=== PATIENT | female | born 1940 | race Caucasian/White ===

== ENCOUNTER 2019-01-01 15:04 | Emergency (ER) | payer MEDICARE, BC ==
[~2019-01-01] VITALS: Wt 57.0 kg
[~2019-01-01 15:04] MED LIST: ATRO2DRO3 LEFT EYE; CELE200C PO; ESOM40CA PO; LEVO88TA3 PO; POLY15DR42 BOTH EYES; PRED12OP5 BOTH EYES; SIMV20TA2 PO; VIGA LEFT EYE
[2019-01-01 15:08] VITALS: BP 160/75; PULSE 60; RESP 18
[2019-01-01] MEDS ORDERED: morphine 4 MG/ML VIAL IV STA (16:47)
[2019-01-01] MEDS ORDERED: SOD CHLORIDE 0.9% 500 ML IV STA (16:47)
[2019-01-01] MEDS ORDERED: ONDANSETRON 4 MG INJ IV STA (16:47)
--- NOTE | 2019-01-01 17:28 | ERD ---
ER Documentation Chief Complaint Chief Complaint HEADACHE WITH NO NEURO DEFICIT. NO N/V. NON TRAUMA BRUISE TO LOWER LEG HPI This is a 78-year-old female who presents to the emergency room complaining of a headache for approximately 2 to 3 days. The patient describes nontraumatic headache that was gradual in onset is bandlike across the entirety of her scalp. Patient does have a history of glaucoma but denies any vision changes or ocular pain that would be consistent with her glaucoma. She has been taking her glaucoma medication. She also denies any jaw claudication or vision blurriness or loss of vision. No fevers or chills or trauma. The patient has noted some nontraumatic bruising to her right weiner overlying a varicosity. Patient otherwise has no complaints. She describes her headache at this time as 6-7 out of 10. She tried some Tylenol for the first time just prior to arrival. ROS All systems reviewed and are negative except as per history of present illness. Medications Home Meds Reported Medications Artificial Tears* (Artificial Tears* Ophth) 15 ml Opht, 2 DROP BOTH EYES QID, EA 10/29/14 Moxifloxacin Hcl* (Vigamox*) 0.5% - 3 Ml Opht, 1 DROP LEFT EYE QID, EA 10/29/14 Esomeprazole Mag Trihydrate (Nexium) 40 Mg Capsule.dr, 40 MG PO DAILY, CAP 10/29/14 Simvastatin (Simvastatin) 20 Mg Tablet, 20 MG PO HS, TAB 10/29/14 Celecoxib* (Celebrex*) 200 Mg Capsule, 200 MG PO DAILY PRN for PAIN AND/OR INFLAMMATION, CAP 10/29/14 Levothyroxine Sodium* (Levothyroxine Sodium*) 88 Mcg Tablet, 88 MCG PO AC BREAKFAST, TAB 10/29/14 Atropine Sulfate* (Atropine Sulfate*) 1%-5 Ml Opht Drops, 1 DROP LEFT EYE BID, EA 10/29/14 Prednisolone Acetate* (Pred Mild*) 5 Ml Drops.susp, 1 DROP BOTH EYES QID, EA 10/29/14 Allergies Allergies: Coded Allergies: iodine (Verified Allergy, Mild, 10/29/14) PMhx/Soc History of Surgery: Yes (cataract,glaucoma,right knee ,left shoulder surgery, BILATERAL HIP) Anesthesia Reaction: No Hx Neurological Disorder: No Hx Respiratory Disorders: No Hx Cardiac Disorders: Yes (HTN, HDL) Hx Psychiatric Problems: No Hx Miscellaneous Medical Probl: Yes (HYPOTHYROIDISM, GLAUCOMA) Hx Alcohol Use: Yes (occassional) Hx Substance Use: No Hx Tobacco Use: No Smoking Status: Never smoker FmHx Family History: No diabetes Physical Exam Vitals Vital Signs Date Temp Pulse Resp B/P (MAP) Pulse Ox O2 O2 Flow FiO2 Time Delivery Rate 01/01/19 97.5 60 18 160/75 99 15:08 (103) Physical Exam General: Well developed, well nourished, no acute distress Head: Normocephalic, atraumatic., No tenderness to percussion of the temporal arteries bilaterally Eyes: Pupils equally reactive, EOM intact ENT: Moist mucous membranes Neck: Supple, no lymphadenopathy Respiratory: Lungs clear bilaterally, no distress Cardiovascular: RRR, no murmurs, rubs, or gallops Abdominal: Soft, non-tender, non-distended, no peritoneal signs : Deferred MSK: No edema, no unilateral swelling, 5/5 strength Neurologic: Alert and oriented, moving all extremities, normal speech, no focal weakness, no cerebellar signs, no meningismus Skin: Small bruising to the right weiner overlying a varicose vein, no petechia or purpura Psych: Normal mood Result Diagram: 01/01/19 1720 Results 24 hrs Laboratory Tests Test 01/01/19 17:20 White Blood Count 8.8 10^3/ul Red Blood Count 4.47 10^6/ul Hemoglobin 13.6 g/dl Hematocrit 40.8 % Mean Corpuscular Volume 91.3 fl Mean Corpuscular Hemoglobin 30.4 pg Mean Corpuscular Hemoglobin Concent 33.3 g/dl Red Cell Distribution Width 15.0 % Platelet Count 217 10^3/UL Mean Platelet Volume 11.0 fl Immature Granulocytes % 0.600 % Neutrophils % 66.2 % Lymphocytes % 23.8 % Monocytes % 8.0 % Eosinophils % 0.9 % Basophils % 0.5 % Nucleated Red Blood Cells % 0.0 /100WBC Immature Granulocytes # 0.050 10^3/ul Neutrophils # 5.8 10^3/ul Lymphocytes # 2.1 10^3/ul Monocytes # 0.7 10^3/ul Eosinophils # 0.1 10^3/ul Basophils # 0.0 10^3/ul Nucleated Red Blood Cells # 0.0 10^3/ul Prothrombin Time 12.0 Sec Prothrombin Time Ratio 0.9 INR International Normalized Ratio 0.88 Activated Partial Thromboplast Time 24.5 Sec Current Medications Medications Dose Sig/Kristin Start Time Status Last (Trade) Ordered Route PRN Stop Time Admin Dose Reason Admin Sodium 500 ml @ Q1H STAT 01/01/19 DC 01/01/19 Chloride 500 mls/hr IV 16:47 17:32 01/01/19 17:46 Ondansetron 4 mg ONCE STAT 01/01/19 DC 01/01/19 HCl (Zofran IV 16:47 17:32 Inj) 01/01/19 16:49 Morphine 2 mg ONCE STAT 01/01/19 DC 01/01/19 Sulfate IV 16:47 17:31 (morphine) 01/01/19 16:49 Ketorolac 15 mg ONCE STAT 01/01/19 DC 01/01/19 Tromethamine IV 17:46 18:20 (Toradol) 01/01/19 17:48 Procedures/MDM EKG, MONITORS, & DIAGNOSTIC IMAGING: CT brain: IMPRESSION: Atrophy. Mild white matter disease compatible with chronic small vessel ischemia. No intracranial hemorrhage, mass or evidence of acute transcortical infarct. LAB INTERPRETATION: I reviewed the laboratory testing and it shows no evidence of acute process MEDICAL DECISION MAKING: The patient's headache is unlikely related to serious etiology. The patient does not exhibit any clinical signs or symptoms, and has no risk factors to suggest headache etiology such as subarachnoid hemorrhage, acute vertebral or carotid dissection, intracranial mass, epidural, subdural hematoma, dural venous sinus thrombosis, giant cell arteritis, or pseudotumor cerebri. The patient is describing a very classic tension type headache. However given her age I do believe CT of the brain would be appropriate to rule out bleed or mass. The patient does have some bruising noted to her right weiner that is consistent with likely ruptured varicosity. No evidence of significant trauma or other coagulopathy. ER COURSE: * Patient given IV fluids and pain control medication * Patient much improved and asymptomatic currently. The patient is safe for discharge. No evidence of coagulopathy and negative CT brain. CONSULTATION: None DISPOSITION PLAN: The patient does not have an identifiable emergent medical condition that warrants inpatient hospitalization at this time. The patient is deemed safe for discharge with outpatient follow-up. We discussed follow up with the patient's primary care doctor within 24 to 48 hours as needed. We also discussed return to the emergency room for worsening symptoms or worsening condition. Outpatient referral: None required Discharge Medications: Take [id number] Tylenol Motrin as needed Departure Diagnosis: Primary Impression: Tension headache Condition: Stable LORELEI VELA MD January 01, 2019 17:28
[2019-01-01] MEDS ORDERED: KETOROLAC 15 MG INJ IV STA (17:46)
== END 2019-01-02 08:55 | disposition home or self-care (01) ==
LOC: E/R 15:04
DX: G44.209 Tension-type headache, unspecified, not intractable (principal); R40.2142 Coma scale, eyes open, spontaneous, at arrival to emergency department; R40.2362 Coma scale, best motor response, obeys commands, at arrival to emergency department; R40.2252 Coma scale, best verbal response, oriented, at arrival to emergency department; I10 Essential (primary) hypertension; E03.9 Hypothyroidism, unspecified
CPT/HCPCS: 36415; 70450; 85025; 85610; 85730; 96374; 96375; 99285; J1885; J2270; J2405; J7040